=== PATIENT | female | born 1980 | race Caucasian/White ===

== ENCOUNTER 2017-10-15 10:39 | Emergency (ER) | payer BC, OTHER ==
--- NOTE | 2017-10-15 10:59 | CPEKG ---
Heart Rate: 71 RR Interval: 845 P-R Interval: 144 QRSD Interval: 84 QT Interval: 392 QTC Interval: 426 P Leslie: 53 QRS Leslie: 67 T Wave Leslie: 39 EKG Severity - NORMAL ECG - EKG Impression: SINUS RHYTHM Electronically Signed By: Kathleen Mccord 15-Oct-2017 14:52:18
[2017-10-15 11:12] LABS: PLATELET COUNT 272 10^3/uL (150-400)
--- NOTE | 2017-10-15 11:14 | EDPHY ---
H & P Time Seen by Provider: 10/15/17 11:05 HPI/ROS: CHIEF COMPLAINT: Dizziness HISTORY OF PRESENT ILLNESS: This patient is a 37 y/o female with history of SVT s/p ablation complaining of a sensation of dizziness earlier today. She was on the phone this morning and had a sudden onset feeling of skipped beat similar to the onset of her prior SVT. After this, she felt very lightheaded as if she were going to pass out. No rapid HR. Since that time has had mild headache, slight photophobia, dizziness, and nausea. She has had an unusually stressful week and has had a sensation of room-spinning dizziness over the past week. Associated dull headache and difficulty looking directly at light sources. She endorses history of migraines. Additionally, she has been unable to sleep well due to stress. She had a cold several weeks ago, but currently feels well. No chest pain, shortness of breath, abdominal pain, or other associated symptoms. REVIEW OF SYSTEMS: A 10 point review of systems was performed and is negative with the exception of the elements mentioned in the history of present illness. Past Medical/Surgical History: History of SVT s/p [place] [address] Topete, [employer] emergency dispatcher. Asthma. Social History: Lives in [place]. Employed. Nonsmoker. Smoking Status: Never smoked Physical Exam: General Appearance: Alert, pleasant Eyes: Horizontal nystagmus with lateral gaze. Pupils equal and round, no conjunctival pallor or injection ENT, Mouth: Mucous membranes moist Neck: Normal inspection Respiratory: Lungs are clear to auscultation Cardiovascular: Regular rate and rhythm Gastrointestinal: Abdomen is soft and non-tender Neurological: Alert, oriented x3, cranial nerves II through XII intact, motor 5 /5, sensory intact to light touch, normal gait Skin: Warm and dry, no rash Extremities: Nontender, no pedal edema Psychiatric: Slightly anxious Constitutional: Initial Vital Signs Temperature (C) 37 C 10/15/17 10:42 Heart Rate 73 10/15/17 10:42 Respiratory Rate 16 10/15/17 10:42 Blood Pressure 132/100 H 10/15/17 10:42 O2 Sat (%) 98 10/15/17 10:42 O2 Delivery Mode Room Air Allergies/Adverse Reactions: No Known Allergies Allergy (Unverified 10/15/17 10:42) Home Medications: Medication Instructions Recorded NK [No Known Home Meds] 10/15/17 Medical Decision Making - Diagnostics EKG Interpretation: EKG interpreted by me reveals normal sinus rhythm, rate 71, no ST/T changes. Interpretation: normal EKG. ED Course/Re-evaluation: This pt presents with dizziness, c/w vertigo. Neurologic exam is normal and I do not suspect a central etiology of sx. stat EKG reveals no ischemia or dysrhythmia. Pt declines meds in ED, will take Antivert at home as needed. Also has significant increased stress and lack of sleep recently, which is likely a contributing factor to sx. horse shoer reveals normal sinus rhythm throughout; no episodes of SVT or other dysrhythmia. Safe/stable for d/c. Differential Diagnosis: Dizziness including but not limited to peripheral and central causes of vertigo , orthostatic causes including dehydration, and blood loss. - Data Points Laboratory Results: Laboratory Results 10/15/17 11:00 10/15/17 11:00 Departure - Departure Disposition: Home, Routine, Self-Care Clinical Impression: Vertigo Condition: Good Instructions: Vertigo (ED), Stress (ED) Additional Instructions: 1. Take Antivert as directed on the packaging. 2. Follow up with your primary care provider for evaluation of symptoms unresolved. 3. Stay well hydrated and drink plenty of fluids. 4. Return to the emergency department for headache, numbness, weakness, severe vertigo, neck pain, inability to tolerate fluids by mouth or other worsening of condition. Referrals: Johana Alfonso MD [Primary Care Provider] - As per Instructions Stand Alone Forms: Work Excuse Report Scribed for: Kathleen Mccord Report Scribed by: Kylah Raymundo Date of Report: 10/15/17 Time of Report: 11:13 Physician Review and Approval Statement: 10/15/17 11:13 Portions of this note were transcribed by a medical claims specialist. I personally performed a history, physical exam, medical decision making, and confirmed accuracy of information the transcribed note.
[2017-10-15 12:05] VITALS: BP 113/83; PULSE 75; RESP 18; TEMP 98.6; O2SAT 97
== END 2017-10-15 12:05 | disposition home or self-care (01) ==
DX: R42 Dizziness and giddiness (principal); J45.909 Unspecified asthma, uncomplicated

== ENCOUNTER → 2018-05-21 | Outpatient (CLI) | payer OTHER | LOC: FIMAGING 13:34 | PROVIDERS: ATTEND Surgery | DX: R10.2 Pelvic and perineal pain (principal) ==

== ENCOUNTER → 2018-05-31 | Outpatient (CLI) | payer OTHER ==
[~2018-05-31] MED LIST: IOPAMIDOL (ISOVUE-300) 100 ML BTL ONE
== END ==
LOC: FIMAGING 08:22
PROVIDERS: ATTEND Surgery
DX: R10.31 Right lower quadrant pain (principal); I87.8 Other specified disorders of veins
CPT/HCPCS: Q9967